=== PATIENT | female | born 1975 | race Caucasian/White ===

== ENCOUNTER 2018-03-10 17:56 | Inpatient (IN) | payer MEDICAID ==
[~2018-03-10] VITALS: Ht 167.6 cm; Wt 130.6 kg
[2018-03-10 18:07] VITALS: Ht 167.6 cm; Wt 130.6 kg
[2018-03-10 19:36] LABS: BASOPHIL % 0.9 % (0-2)
[2018-03-10 19:45] LABS: CALCIUM 8.4 mg/dL (8.5-10.1); CHLORIDE SERUM 104 mmol/L (98-107); CREATININE SERUM 0.6 mg/dL (0.6-1.0); GFR1 > 60 mL/min; GLUCOSE SERUM 103 mg/dL (74-106); POTASSIUM SERUM 3.6 mmol/L (3.5-5.1); SODIUM SERUM 138 mmol/L (136-145)
[2018-03-10 19:49] LABS: ALBUMIN 3.3 g/dL (3.4-5.0); ALKALINE PHOSPHATASE 109 U/L (46-116); ALT/SGPT 39 U/L (14-59); AMYLASE 52 U/L (25-115); AST/SGOT 22 U/L (15-37); BILIRUBIN TOTAL 0.2 mg/dL (0.20-1.00); LIPASE 89 IU/L (73-393); TOTAL PROTEIN, SERUM 7.6 g/dL (6.4-8.2)
[2018-03-10 19:52] LABS: PLATELET COUNT 404 x10^3mcL (130-400); RED CELL DISTRIBUTION WIDTH 15.4 % (11.5-14.5)
[2018-03-11 01:08] VITALS: BP 105/62
[2018-03-11 01:43] LABS: CHOLESTEROL/HDL RATIO 3.6; MAGNESIUM 2.1 mg/dL (1.8-2.4); PHOSPHOROUS 3.6 mg/dL (2.5-4.9)
[2018-03-11 01:50] LABS: FREE T4 1.03 ng/dL (0.76-1.46); T4(THYROXINE) 9.5 ug/dL (4.7-13.3)
[2018-03-11 02:58] LABS: T3 TOTAL 1.21 ng/mL
[2018-03-11 05:18] VITALS: BP 101/60
[2018-03-11 06:56] LABS: BASOPHIL % 0.4 % (0-2); PLATELET COUNT 367 x10^3mcL (130-400)
[2018-03-11 06:59] LABS: RED CELL DISTRIBUTION WIDTH 15.5 % (11.5-14.5)
[2018-03-11 07:15] LABS: CALCIUM 7.9 mg/dL (8.5-10.1); CARBON DIOXIDE 26.7 mmol/L (21-32); CHLORIDE SERUM 107 mmol/L (98-107); CREATININE SERUM 0.7 mg/dL (0.6-1.0); GFR1 > 60 mL/min; GLUCOSE SERUM 90 mg/dL (74-106); MAGNESIUM 2.5 mg/dL (1.8-2.4); PHOSPHOROUS 3.2 mg/dL (2.5-4.9); POTASSIUM SERUM 4.2 mmol/L (3.5-5.1); SODIUM SERUM 139 mmol/L (136-145)
[2018-03-11 08:59] VITALS: BP 115/70
[2018-03-11 17:24] VITALS: BP 106/51
[2018-03-11 21:15] VITALS: BP 110/55
[2018-03-12 05:46] VITALS: BP 106/64
[2018-03-12 07:01] LABS: BASOPHIL % 0.3 % (0-2); PLATELET COUNT 378 x10^3mcL (130-400)
[2018-03-12 07:12] LABS: CALCIUM 8.3 mg/dL (8.5-10.1); CARBON DIOXIDE 24.9 mmol/L (21-32); CHLORIDE SERUM 105 mmol/L (98-107); CREATININE SERUM 0.6 mg/dL (0.6-1.0); GFR1 > 60 mL/min; GLUCOSE SERUM 96 mg/dL (74-106); MAGNESIUM 2.5 mg/dL (1.8-2.4); PHOSPHOROUS 3.1 mg/dL (2.5-4.9); POTASSIUM SERUM 3.8 mmol/L (3.5-5.1); SODIUM SERUM 137 mmol/L (136-145)
[2018-03-12 07:26] LABS: RED CELL DISTRIBUTION WIDTH 15.4 % (11.5-14.5)
[2018-03-12 08:37] VITALS: BP 102/55
[2018-03-12 13:16] VITALS: BP 123/69
[2018-03-12] MEDS ORDERED: COL100 PO (14:27)
[2018-03-12] MEDS ORDERED: AUGMENTIN 875-1 EACH PO (14:28)
[2018-03-12] MEDS ORDERED: LAC PO (14:28)
[2018-03-12] MEDS ORDERED: NORCO1 TA2 PO (14:28)
[2018-03-12 16:21] VITALS: BP 104/56
== END 2018-03-12 18:13 | disposition home or self-care (01) | DRG 263 ==
LOC: ED 17:56 → MU 03-11 00:07 → DU 03-11 00:07 → MU 03-12 06:17
PROVIDERS: Family Medicine; Specialist; Surgery
PROC: 0FT44ZZ Resection of Gallbladder, Percutaneous Endoscopic Approach (ICD-10-PCS; principal; 2018-03-11 09:30)
DX: K80.00 Calculus of gallbladder with acute cholecystitis without obstruction (principal); E44.1 Mild protein-calorie malnutrition; E83.41 Hypermagnesemia; Z68.42 Body mass index [BMI] 45.0-49.9, adult; E66.01 Morbid (severe) obesity due to excess calories; K56.41 Fecal impaction; D64.9 Anemia, unspecified; D47.3 Essential (hemorrhagic) thrombocythemia; Z90.49 Acquired absence of other specified parts of digestive tract; Z90.721 Acquired absence of ovaries, unilateral
CPT/HCPCS: 83880; 84439; 94150; J0690; J0696; J1170; J1644; J1885; J2250; J2405; J3010; J3490; J7030; Q0092